=== PATIENT | male | born 1945 | race African-American/Black ===

== ENCOUNTER → 2017-10-28 | Outpatient (CLI) | payer MEDICARE, BC ==
[~2017-10-28] MED LIST: AMLO1TAB34 PO; ASPI-1159 PO; DORZ10DR12 EACHEYE; XALAO EACHEYE; [UNRECOGNIZED DRUG - CODE] MC
== END | disposition home or self-care (01) ==
LOC: MRI 08:34
PROVIDERS: ATTEND Urology
DX: D30.00 Benign neoplasm of unspecified kidney (principal); Z85.528 Personal history of other malignant neoplasm of kidney; Z90.5 Acquired absence of kidney
CPT/HCPCS: 74181

== ENCOUNTER 2025-08-14 17:55 | Emergency (ER) | payer BC, MEDICARE ==
[~2025-08-14] VITALS: Ht 170.2 cm; Wt 66.0 kg
[~2025-08-14 17:55] MED LIST changes: -ASPI-1159 PO; +ASPI-1497 PO
[2025-08-14 18:12] VITALS: O2SAT 100
[2025-08-14 18:43] LABS: BASOPHILS % 0.5 % (0.0-2.0); HEMOGLOBIN. 13.1 g/dL (14.0-18.0); PLATELET 155 x1000/uL (130-400); RED CELL DISTRIBUTION WIDTH 12.9 % (11.6-14.6)
[2025-08-14 18:45] LABS: EOSINOPHILS % 0.7 % (0.0-5.0); HEMATOCRIT. 40.3 % (42.0-52.0); LYMPHOCYTES % 33.6 % (20.0-50.0); MEAN PLATELET VOLUME 11.2 fl (7.4-10.4); MONOCYTES % 10.6 % (2.0-8.0); NEUTROPHILS % 54.6 % (40.0-76.0); RED BLOOD CELL COUNT 4.45 mill/uL (4.7-6.1)
[2025-08-14 18:59] LABS: CREATININE 1.9 mg/dL (0.6-1.3); UREA NITROGEN BLOOD 14.0 mg/dL (9-23)
[2025-08-14 19:16] LABS: TROPONIN I HIGH SENSITIVITY 7 ng/L (3.0-53)
[2025-08-14 19:40] VITALS: BP 161/68; PULSE 64; RESP 16; TEMP 36.7; O2SAT 100
== END 2025-08-14 19:45 | disposition home or self-care (01) ==
LOC: ER 17:55
DX: I10 Essential (primary) hypertension (principal); Z55.6 Problems related to health literacy; Z79.82 Long term (current) use of aspirin; Z86.73 Personal history of transient ischemic attack (TIA), and cerebral infarction without residual deficits
CPT/HCPCS: 36415; 80048; 84484; 85025; 93005; 99284